=== PATIENT | female | born 1960 | race Two or more races ===

== ENCOUNTER 2022-09-10 09:57 | Inpatient (IN) | payer BC, MEDICAID ==
[~2022-09-10] VITALS: Ht 162.6 cm; Wt 88.0 kg
[2022-09-10] MEDS ORDERED: LIDOCAINE 5% PATCH TOP ONE (10:15)
[2022-09-10] MEDS ORDERED: SODIUM CHLORIDE 0.9% 500 ML IV ONE (10:15)
[2022-09-10] MEDS ORDERED: SODIUM CHLORIDE 0.9% 1,000 ML IV ONE (10:15)
[2022-09-10 10:35] LABS: HEMATOCRIT. 53.2 % (36.0-48.0); HEMOGLOBIN. 15.5 g/dL (12.0-16.0); MEAN CORPUSCULAR HEMOGLOBIN 29.6 pg (28.0-32.0); MEAN CORPUSCULAR VOLUME 101.2 fL (81.0-99.0); MEAN PLATELET VOLUME 9.9 fl (7.4-10.4); PLATELET 310 x1000/uL (130-400); RED BLOOD CELL COUNT 5.25 mill/uL (4.2-5.4); RED CELL DISTRIBUTION WIDTH 15.3 % (11.6-14.6)
[2022-09-10 10:38] LABS: BG BASE EXCESS -27.3 mmol/L (-2.0-2.0); BG CARBOXYHEMOGLOBIN 0.3 % (0.5-1.5); BG DEOXYHEMOGLOBIN 4.8 % (0.0-5.0); BG HCO3 ACT 3.9 mmol/L (22.0-26.0); BG METHEMOGLOBIN 0.4 % (0.0-1.5); BG OXYGEN SATURATION 95.2 % (92.0-98.5); BG OXYHEMOGLOBIN 94.5 % (94.0-97.0); BG PCO2 19.1 mmHg (35.0-45.0); BG PH 6.931 (7.350-7.450); BG PO2 96.6 mmHg (75.0-100.0); BG SAMPLE SITE RIGHT RADIAL; BG VENT MODE NASAL CANNULA
[2022-09-10] MEDS ORDERED: SODIUM BICARBONATE 8.4% 1 MEQ/ML 50ML SYR IV NR ×2 (11:00→17:30)
[2022-09-10] MEDS ORDERED: VANCOMYCIN 1G PREMIX 200 ML IV NR (11:00)
[2022-09-10] MEDS ORDERED: PIPERACILLIN/TAZ 3.375G PREMIX 50 ML IV NR ×2 (11:00→21:00)
[2022-09-10] MEDS ORDERED: MORPHINE SULFATE 4 MG/ML CPJ (NOT FOR IM USE) IV ONE ×2 (11:30→13:15)
[2022-09-10 11:35] LABS: INR 2.5; PROTHROMBIN TIME 25.3 sec (9.6-11.0)
[2022-09-10 12:34] LABS: CHLORIDE 92 mEq/L (98-107)
[2022-09-10 12:39] LABS: PLATELET ESTIMATE NORMAL
[2022-09-10] MEDS ORDERED: INSULIN REGULAR (DRIP) 100 UNITS in SODIUM CHLORIDE 0.9% 99 ML IV ONE (12:45)
[2022-09-10] MEDS ORDERED: INSULIN REGULAR (HUMULIN R) 300UNITS/3ML VIAL IV NR (12:45)
[2022-09-10 12:51] LABS: CREATINE KINASE 104 IU/L (26-192); ETHANOL BLOOD < 10 mg/dL
[2022-09-10] MEDS ORDERED: INSULIN REGULAR 100U/100ML PMX 100 ML IV SCH ×2 (13:00→19:00)
[2022-09-10] MEDS ORDERED: HYDROMORPHONE HCL/PF 2MG/ML CPJ IV NR (13:30)
[2022-09-10] MEDS ORDERED: PROPOFOL 10MG/ML 100ML 100 ML IV ONE (13:30)
[2022-09-10] MEDS ORDERED: ONDANSETRON HCL 4MG/2ML INJ IV NR (13:30)
[2022-09-10] MEDS ORDERED: SUCCINYLCHOLINE CHLORIDE 200MG/10ML IV ONE (13:30)
[2022-09-10] MEDS ORDERED: NOREPINEPHRINE 8 MG in DEXT 5% WATER 242 ML IV PRN (14:30)
[2022-09-10] MEDS ORDERED: NOREPINEPHRINE 8MG/250ML PMX 250 ML IV SCH (14:45)
[2022-09-10] MEDS ORDERED: NOREPINEPHRINE 8MG/250ML PMX 250 ML IV PRN (14:45)
[2022-09-10 15:00] LABS: CLARITY URINE TURBID (CLEAR); COLOR URINE DARK YELLOW (YELLOW); KETONES URINE 1+ (NEGATIVE); LEUKOCYTE ESTERASE URINE 3+ (NEGATIVE); NITRITE URINE NEGATIVE (NEGATIVE); OCCULT BLOOD URINE 2+ (NEGATIVE); PH URINE 5.5 (4.5-8.0); PROTEIN URINE 4+ (NEGATIVE); SPECIFIC GRAVITY URINE 1.025 (1.005-1.030); UROBILINOGEN URINE 0.2 E.U./dL (0.2-1.0)
[2022-09-10] MEDS ORDERED: NITROGLYCERIN OINT 1GM/INCH UDPKT TD NR (15:15)
[2022-09-10] MEDS ORDERED: FUROSEMIDE 40MG/4ML VIAL IVP NR (15:15)
[2022-09-10] MEDS ORDERED: ASPIRIN 325MG EC TABLET PO NR (15:15)
[2022-09-10] MEDS ORDERED: DEXT 5%/0.45% NACL 1000ML 1,000 ML IV SCH (15:45)
[2022-09-10] MEDS ORDERED: DEXTROSE 50% WATER 50ML SYRINGE IV PRN (15:45)
[2022-09-10] MEDS ORDERED: INSULIN REGULAR (HUMULIN R) 300UNITS/3ML VIAL IV PRN (15:45)
[2022-09-10] MEDS ORDERED: INSULIN REGULAR (DRIP) 100 UNITS in SODIUM CHLORIDE 0.9% 99 ML IV SCH (16:00)
[2022-09-10 16:15] LABS: BG BASE EXCESS -30.9 mmol/L (-2.0-2.0); BG CARBOXYHEMOGLOBIN 0.3 % (0.5-1.5); BG HCO3 ACT 3.2 mmol/L (22.0-26.0); BG METHEMOGLOBIN 0.3 % (0.0-1.5); BG OXYHEMOGLOBIN 98.4 % (94.0-97.0); BG PCO2 20.8 mmHg (35.0-45.0); BG PH 6.802 (7.350-7.450); BG PO2 240.3 mmHg (75.0-100.0); BG SAMPLE SITE RIGHT RADIAL; BG VENT MODE VENT - AC
[2022-09-10] MEDS ORDERED: ASPIRIN 81MG TABLET PO ONE (16:15)
[2022-09-10] MEDS: SODIUM BICARBONATE 100 MEQ in SODIUM CHLORIDE 0.45% 1,000 ML IV SCH (16:16)
[2022-09-10] MEDS ORDERED: PROPOFOL 10MG/ML 100ML 100 ML IV SCH (16:30)
[2022-09-10] MEDS: BLOOD SUGAR DIAGNOSTIC STRIP TEST SCH ×5 (16:39→19:45)
[2022-09-10 17:23] LABS: BETA HYDROXYBUTYRATE 7.8 mMol/L (0.0-0.3)
[2022-09-10] MEDS ORDERED: PHENYLEPHRINE 100 MG in DEXT 5% WATER 240 ML IV PRN (17:45)
[2022-09-10] MEDS ORDERED: PROPOFOL 10MG/ML 100ML 100 ML IV PRN (17:45)
[2022-09-10 17:59] LABS: PHOSPHORUS 16.3 mg/dL (2.5-4.9)
[2022-09-10] MEDS ORDERED: ACETAMINOPHEN 325MG SUPP PR PRN (18:15)
[2022-09-10 18:57] LABS: *AMPHETAMINES SCREEN URINE NEGATIVE (NEGATIVE); *BARBITURATES SCREEN URINE NEGATIVE (NEGATIVE); *BENZODIAZEPINES SCREEN URINE NEGATIVE (NEGATIVE); *COCAINE SCREEN URINE NEGATIVE (NEGATIVE); CANNABINOID URINE SCREEN NEGATIVE (NEGATIVE); METHADONE URINE SCREEN NEGATIVE (NEGATIVE); OPIATES URINE SCREEN PRESUMTIVE POSITIVE (NEGATIVE); PHENCYCLIDINE URINE SCREEN NEGATIVE (NEGATIVE)
[2022-09-10 18:58] LABS: BG BASE EXCESS -26.3 mmol/L (-2.0-2.0); BG CARBOXYHEMOGLOBIN 0.6 % (0.5-1.5); BG DEOXYHEMOGLOBIN 0.5 % (0.0-5.0); BG FRACTION INSPIRED OXYGEN 80; BG METHEMOGLOBIN 0.3 % (0.0-1.5); BG OXYGEN SATURATION 99.5 % (92.0-98.5); BG OXYHEMOGLOBIN 98.6 % (94.0-97.0); BG PH 6.934 (7.350-7.450); BG PO2 309.7 mmHg (75.0-100.0); BG SAMPLE SITE RIGHT RADIAL; BG TOTAL HEMOGLOBIN 14.2 g/dL (12.0-18.0); BG TOTAL RESPIRATORY RATE 30 b/min; BG VENT MODE VENT - AC
[2022-09-10] MEDS: FENTANYL 2500MCG/250ML PMX 250 ML IV PRN (19:01)
[2022-09-10 19:26] LABS: CREATINE KINASE MB FRACTION 5.3 ng/mL (0.5-3.6)
[2022-09-10] MEDS: SODIUM CHLORIDE 0.45% 1,000 ML IV SCH ×2 (20:30→23:00)
[2022-09-10] MEDS: LACTULOSE 20G/30ML UDC PO SCH (23:00)
[2022-09-10 23:30] VITALS: BP 100/50
[2022-09-10] MEDS ORDERED: IPRATROPIUM BROMIDE (0.02%) 0.5MG/2.5ML NEB HHN PRN (23:30)
[2022-09-11] VITALS (82 sets, daily range): BP systolic 73–193; BP diastolic 37–102
[2022-09-11] MEDS ORDERED: DEXTROSE 50% WATER 50ML SYRINGE IV PRN (00:30)
[2022-09-11 00:54] LABS: BG BASE EXCESS -22.2 mmol/L (-2.0-2.0); BG CARBOXYHEMOGLOBIN 0.1 % (0.5-1.5); BG DEOXYHEMOGLOBIN 0.7 % (0.0-5.0); BG FRACTION INSPIRED OXYGEN 80; BG HCO3 ACT 6.5 mmol/L (22.0-26.0); BG METHEMOGLOBIN 0.3 % (0.0-1.5); BG OXYGEN SATURATION 99.3 % (92.0-98.5); BG OXYHEMOGLOBIN 98.9 % (94.0-97.0); BG PCO2 23.4 mmHg (35.0-45.0); BG PH 7.063 (7.350-7.450); BG PO2 322.2 mmHg (75.0-100.0); BG SAMPLE SITE RIGHT RADIAL; BG TOTAL HEMOGLOBIN 13.8 g/dL (12.0-18.0); BG VENT MODE VENT - AC
[2022-09-11] MEDS ORDERED: PHENYLEPHRINE 100 MG in DEXT 5% WATER 240 ML IV PRN (01:30)
[2022-09-11] MEDS ORDERED: SODIUM BICARBONATE 8.4% 1 MEQ/ML 50ML SYR IV NR ×2 (01:45→10:15)
[2022-09-11] MEDS: SODIUM BICARBONATE 100 MEQ in SODIUM CHLORIDE 0.45% 1,000 ML IV SCH (01:48)
[2022-09-11] MEDS: PROPOFOL 10MG/ML 100ML 100 ML IV PRN ×2 (01:50→08:58)
[2022-09-11] MEDS: NOREPINEPHRINE 32 MG in DEXT 5% WATER 218 ML IV PRN ×3 (01:51→17:23)
[2022-09-11] MEDS: SODIUM CHLORIDE 0.45% 1,000 ML IV SCH ×4 (01:53→08:00)
[2022-09-11 02:29] LABS: PHOSPHORUS 9.8 mg/dL (2.5-4.9)
[2022-09-11 02:30] LABS: CREATINE KINASE MB FRACTION 6.6 ng/mL (0.5-3.6)
[2022-09-11] MEDS: FENTANYL 2500MCG/250ML PMX 250 ML IV PRN (05:47)
[2022-09-11 05:52] LABS: HEMATOCRIT. 42.2 % (36.0-48.0); HEMOGLOBIN. 13.5 g/dL (12.0-16.0); MEAN CORPUSCULAR HEMOGLOBIN 29.4 pg (28.0-32.0); MEAN PLATELET VOLUME 9.9 fl (7.4-10.4); PLATELET 197 x1000/uL (130-400); RED BLOOD CELL COUNT 4.58 mill/uL (4.2-5.4); RED CELL DISTRIBUTION WIDTH 14.5 % (11.6-14.6)
[2022-09-11 05:58] LABS: CHLORIDE 89 mEq/L (98-107)
[2022-09-11] MEDS ORDERED: BLOOD SUGAR DIAGNOSTIC STRIP TEST SCH (06:00)
[2022-09-11 06:11] LABS: CREATINE KINASE 309 IU/L (26-192)
[2022-09-11 06:25] LABS: INR 1.4; PROTHROMBIN TIME 14.8 sec (9.6-11.0)
[2022-09-11] MEDS: LACTULOSE 20G/30ML UDC PO SCH ×4 (06:35→21:34)
[2022-09-11] MEDS: BLOOD SUGAR DIAGNOSTIC STRIP TEST SCH ×3 (06:35→17:33)
[2022-09-11] MEDS: INSULIN LISPRO 100 UNITS/ML SUBCUT SCH ×3 (06:36→17:33)
[2022-09-11] MEDS: ENOXAPARIN 30MG/0.3ML SYR SUBCUT SCH (08:57)
[2022-09-11] MEDS: PANTOPRAZOLE SODIUM 40 MG/VIAL IV SCH (08:58)
[2022-09-11] MEDS: PIPERACILLIN/TAZOBACTAM 3.375 G in DEXTROSE 5% WATER 50 ML IV SCH ×2 (08:58→21:34)
[2022-09-11] MEDS: MIDAZOLAM HCL 100 MG in SODIUM CHLORIDE 0.9% 80 ML IV PRN (09:42)
[2022-09-11] MEDS: SODIUM BICARBONATE 150 MEQ in DEXTROSE 5% WATER 1,000 ML IV SCH ×2 (09:42→21:33)
[2022-09-11 09:53] LABS: BG CARBOXYHEMOGLOBIN 1.1 % (0.5-1.5); BG DEOXYHEMOGLOBIN 3.9 % (0.0-5.0); BG FRACTION INSPIRED OXYGEN 40; BG HCO3 ACT 5.6 mmol/L (22.0-26.0); BG METHEMOGLOBIN 0.2 % (0.0-1.5); BG OXYHEMOGLOBIN 94.8 % (94.0-97.0); BG PCO2 20.3 mmHg (35.0-45.0); BG PH 7.061 (7.350-7.450); BG PO2 94.7 mmHg (75.0-100.0); BG SAMPLE SITE RIGHT RADIAL; BG TOTAL HEMOGLOBIN 14.6 g/dL (12.0-18.0); BG VENT MODE VENT - AC
[2022-09-11] MEDS ORDERED: MAGNESIUM 2 G PREMIX 50 ML IV NR (11:00)
[2022-09-11] MEDS ORDERED: FENTANYL CITRATE 2,500 MCG in SODIUM CHLORIDE 0.9% 200 ML IV PRN (11:00)
[2022-09-11] MEDS ORDERED: PIPERACILLIN/TAZOBACTAM 3.375 G in DEXTROSE 5% WATER 50 ML IV SCH (11:00)
[2022-09-11 12:17] LABS: T4 FREE 1.39 ng/dL (0.76-1.46)
[2022-09-11 13:00] LABS: HEPATITIS B SURFACE ANTIGEN NEGATIVE
[2022-09-11] MEDS: IPRATROPIUM BROMIDE (0.02%) 0.5MG/2.5ML NEB HHN SCH ×2 (13:08→19:52)
[2022-09-11] MEDS ORDERED: LACTULOSE ENEMA 1,000ML BOTTLE PR ONE (15:15)
[2022-09-11] MEDS ORDERED: LACTULOSE 300 ML in WATER FOR IRRIGATION,STERILE 700 ML PR NR (15:30)
[2022-09-11 17:04] LABS: PLATELET ESTIMATE NORMAL
[2022-09-12] VITALS (94 sets, daily range): BP systolic 80–182; BP diastolic 41–94
[2022-09-12] MEDS: BLOOD SUGAR DIAGNOSTIC STRIP TEST SCH ×4 (00:55→17:21)
[2022-09-12] MEDS: INSULIN LISPRO 100 UNITS/ML SUBCUT SCH ×4 (01:03→17:23)
[2022-09-12] MEDS: IPRATROPIUM BROMIDE (0.02%) 0.5MG/2.5ML NEB HHN SCH ×4 (01:43→21:06)
[2022-09-12 04:57] LABS: HEMATOCRIT 37.3 % (36.0-48.0); HEMOGLOBIN 12.4 g/dL (12.0-16.0); MEAN CORPUSCULAR HEMOGLOBIN 29.4 pg (28.0-32.0); MEAN CORPUSCULAR VOLUME 88.6 fL (81.0-99.0); PLATELET 129 x1000/uL (130-400); RED BLOOD CELL COUNT 4.22 mill/uL (4.2-5.4); RED CELL DISTRIBUTION WIDTH 14.4 % (11.6-14.6)
[2022-09-12 05:00] LABS: CHLORIDE 87 mEq/L (98-107)
[2022-09-12 05:23] LABS: FERRITIN 186 ng/mL (10-291); PHOSPHORUS 6.3 mg/dL (2.5-4.9); TOTAL IRON BINDING CAPACITY 149 ug/dL (250-450)
[2022-09-12 05:40] LABS: VITAMIN B12 SERUM 448 pg/mL (211-911)
[2022-09-12] MEDS: LACTULOSE 20G/30ML UDC PO SCH ×3 (06:48→21:38)
[2022-09-12] MEDS: SODIUM BICARBONATE 150 MEQ in DEXTROSE 5% WATER 1,000 ML IV SCH ×2 (09:05→20:04)
[2022-09-12] MEDS: PIPERACILLIN/TAZOBACTAM 3.375 G in DEXTROSE 5% WATER 50 ML IV SCH (09:06)
[2022-09-12] MEDS: ENOXAPARIN 30MG/0.3ML SYR SUBCUT SCH (09:06)
[2022-09-12] MEDS: PANTOPRAZOLE SODIUM 40 MG/VIAL IV SCH (09:06)
[2022-09-12 09:34] LABS: BG BASE EXCESS -4.5 mmol/L (-2.0-2.0); BG CARBOXYHEMOGLOBIN 0.5 % (0.5-1.5); BG DEOXYHEMOGLOBIN 3.4 % (0.0-5.0); BG FRACTION INSPIRED OXYGEN 35; BG HCO3 ACT 16.4 mmol/L (22.0-26.0); BG METHEMOGLOBIN 0.1 % (0.0-1.5); BG OXYGEN SATURATION 96.6 % (92.0-98.5); BG PCO2 20.7 mmHg (35.0-45.0); BG PH 7.517 (7.350-7.450); BG PO2 82.2 mmHg (75.0-100.0); BG SAMPLE SITE RIGHT RADIAL; BG TOTAL HEMOGLOBIN 12.2 g/dL (12.0-18.0); BG VENT MODE VENT - AC
[2022-09-12] MEDS ORDERED: KCL 20MEQ/100ML PREMIX 100 ML IV NR (12:00)
[2022-09-12] MEDS ORDERED: CEFTRIAXONE 2 G PREMIX 50 ML IV SCH (12:00)
[2022-09-12 12:34] LABS: BG BASE EXCESS -4.7 mmol/L (-2.0-2.0); BG CARBOXYHEMOGLOBIN 0.5 % (0.5-1.5); BG DEOXYHEMOGLOBIN 4.3 % (0.0-5.0); BG FRACTION INSPIRED OXYGEN 35; BG HCO3 ACT 17.3 mmol/L (22.0-26.0); BG METHEMOGLOBIN 0.1 % (0.0-1.5); BG OXYGEN SATURATION 95.7 % (92.0-98.5); BG OXYHEMOGLOBIN 95.1 % (94.0-97.0); BG PCO2 24.1 mmHg (35.0-45.0); BG PH 7.475 (7.350-7.450); BG PO2 81.8 mmHg (75.0-100.0); BG SAMPLE SITE RIGHT BRACHIAL; BG TOTAL HEMOGLOBIN 11.8 g/dL (12.0-18.0); BG VENT MODE VENT - AC
[2022-09-12] MEDS ORDERED: VANCOMYCIN 1G PREMIX 200 ML IV NR (14:00)
[2022-09-12] MEDS: CEFTRIAXONE 2 G in DEXTROSE 5% WATER 50 ML IV SCH (14:23)
[2022-09-12] MEDS: NOREPINEPHRINE 32 MG in DEXT 5% WATER 218 ML IV PRN (20:04)
[2022-09-12] MEDS: MIDAZOLAM HCL 100 MG in SODIUM CHLORIDE 0.9% 80 ML IV PRN (20:07)
[2022-09-13] VITALS (101 sets, daily range): BP systolic 73–155; BP diastolic 31–107
[2022-09-13] MEDS: BLOOD SUGAR DIAGNOSTIC STRIP TEST SCH ×4 (00:26→17:04)
[2022-09-13] MEDS: INSULIN LISPRO 100 UNITS/ML SUBCUT SCH ×4 (00:27→17:03)
[2022-09-13] MEDS: IPRATROPIUM BROMIDE (0.02%) 0.5MG/2.5ML NEB HHN SCH ×4 (01:29→20:32)
[2022-09-13] MEDS: LACTULOSE 20G/30ML UDC PO SCH ×3 (05:53→22:28)
[2022-09-13] MEDS: SODIUM BICARBONATE 150 MEQ in DEXTROSE 5% WATER 1,000 ML IV SCH (06:29)
[2022-09-13] MEDS: PANTOPRAZOLE SODIUM 40 MG/VIAL IV SCH (08:12)
[2022-09-13] MEDS: ENOXAPARIN 30MG/0.3ML SYR SUBCUT SCH ×2 (08:13→09:00)
[2022-09-13 08:50] LABS: BG CARBOXYHEMOGLOBIN 0.3 % (0.5-1.5); BG DEOXYHEMOGLOBIN 8.3 % (0.0-5.0); BG FRACTION INSPIRED OXYGEN 35; BG HCO3 ACT 35.9 mmol/L (22.0-26.0); BG METHEMOGLOBIN 0.1 % (0.0-1.5); BG OXYGEN SATURATION 91.7 % (92.0-98.5); BG OXYHEMOGLOBIN 91.3 % (94.0-97.0); BG PCO2 39.4 mmHg (35.0-45.0); BG PH 7.578 (7.350-7.450); BG PO2 59.1 mmHg (75.0-100.0); BG SAMPLE SITE RIGHT RADIAL; BG TOTAL HEMOGLOBIN 11.6 g/dL (12.0-18.0); BG VENT MODE VENT - AC
[2022-09-13] MEDS ORDERED: AMIODARONE HCL 900 MG in DEXT 5% WATER 482 ML IV PRN (09:00)
[2022-09-13 11:59] LABS: HEMATOCRIT 32.3 % (36.0-48.0); MEAN CORPUSCULAR HEMOGLOBIN 29.7 pg (28.0-32.0); MEAN CORPUSCULAR VOLUME 87.2 fL (81.0-99.0); PLATELET 91 x1000/uL (130-400); RED BLOOD CELL COUNT 3.71 mill/uL (4.2-5.4); RED CELL DISTRIBUTION WIDTH 14.4 % (11.6-14.6)
[2022-09-13] MEDS: CEFTRIAXONE 2 G in DEXTROSE 5% WATER 50 ML IV SCH (13:07)
[2022-09-13 13:45] LABS: BG BASE EXCESS 14.8 mmol/L (-2.0-2.0); BG CARBOXYHEMOGLOBIN 0.3 % (0.5-1.5); BG DEOXYHEMOGLOBIN 2.9 % (0.0-5.0); BG FRACTION INSPIRED OXYGEN 40; BG METHEMOGLOBIN 0.3 % (0.0-1.5); BG OXYGEN SATURATION 97.1 % (92.0-98.5); BG OXYHEMOGLOBIN 96.5 % (94.0-97.0); BG PCO2 36.6 mmHg (35.0-45.0); BG PH 7.623 (7.350-7.450); BG PO2 97.2 mmHg (75.0-100.0); BG SAMPLE SITE RIGHT RADIAL; BG TOTAL HEMOGLOBIN 11.9 g/dL (12.0-18.0); BG VENT MODE VENT - AC
[2022-09-13] MEDS ORDERED: CALCIUM GLUCONATE 1GM PREMIX 50 ML IV ONE (13:45)
[2022-09-13] MEDS ORDERED: POTASSIUM CHLORIDE INJ 40 MEQ in DEXT 5% WATER 250 ML IV ONE (13:45)
[2022-09-13] MEDS: KCL 20MEQ/100ML X 2 FOR TOTAL KCL 40MEQ/200ML IV SCH ×2 (14:39→17:02)
[2022-09-13] MEDS: CALCIUM GLUCONATE 1GM PREMIX 50 ML IV SCH ×2 (14:39→17:02)
[2022-09-14] VITALS (94 sets, daily range): BP systolic 82–164; BP diastolic 27–85
[2022-09-14] MEDS: IPRATROPIUM BROMIDE (0.02%) 0.5MG/2.5ML NEB HHN SCH ×2 (01:51→21:00)
[2022-09-14] MEDS: INSULIN LISPRO 100 UNITS/ML SUBCUT SCH ×4 (02:31→17:23)
[2022-09-14] MEDS: MIDAZOLAM HCL 100 MG in SODIUM CHLORIDE 0.9% 80 ML IV PRN (04:57)
[2022-09-14 05:51] LABS: BASOPHILS % 0.1 % (0.0-2.0); EOSINOPHILS % 1.1 % (0.0-5.0); HEMATOCRIT. 29.7 % (36.0-48.0); HEMOGLOBIN. 10.2 g/dL (12.0-16.0); LYMPHOCYTES % 10.3 % (20.0-50.0); MEAN CORPUSCULAR HEMOGLOBIN 30.2 pg (28.0-32.0); MEAN CORPUSCULAR VOLUME 88.3 fL (81.0-99.0); MEAN PLATELET VOLUME 9.3 fl (7.4-10.4); MONOCYTES % 6.4 % (2.0-8.0); NEUTROPHILS % 82.1 % (40.0-76.0); PLATELET 61 x1000/uL (130-400); RED BLOOD CELL COUNT 3.36 mill/uL (4.2-5.4); RED CELL DISTRIBUTION WIDTH 14.3 % (11.6-14.6)
[2022-09-14] MEDS: LACTULOSE 20G/30ML UDC PO SCH ×3 (06:08→21:07)
[2022-09-14] MEDS: BLOOD SUGAR DIAGNOSTIC STRIP TEST SCH ×4 (06:08→17:22)
[2022-09-14 08:14] LABS: BG BASE EXCESS 13.6 mmol/L (-2.0-2.0); BG CARBOXYHEMOGLOBIN 0.2 % (0.5-1.5); BG DEOXYHEMOGLOBIN 3.2 % (0.0-5.0); BG HCO3 ACT 37.1 mmol/L (22.0-26.0); BG METHEMOGLOBIN 0.1 % (0.0-1.5); BG OXYGEN SATURATION 96.8 % (92.0-98.5); BG OXYHEMOGLOBIN 96.5 % (94.0-97.0); BG PCO2 42.7 mmHg (35.0-45.0); BG PH 7.557 (7.350-7.450); BG PO2 94.7 mmHg (75.0-100.0); BG SAMPLE SITE RIGHT RADIAL; BG TOTAL HEMOGLOBIN 10.4 g/dL (12.0-18.0); BG VENT MODE VENT - AC
[2022-09-14] MEDS: ENOXAPARIN 30MG/0.3ML SYR SUBCUT SCH (08:48)
[2022-09-14] MEDS: SODIUM CHLORIDE 0.9% 1,000 ML IV SCH ×2 (08:50→21:08)
[2022-09-14] MEDS: PANTOPRAZOLE SODIUM 40 MG/VIAL IV SCH (08:50)
[2022-09-14] MEDS ORDERED: KCL 20MEQ/100ML PREMIX 100 ML IV NR (10:00)
[2022-09-14] MEDS ORDERED: ACETAZOLAMIDE 500MG ER CAPSULE PO NR (12:00)
[2022-09-14] MEDS: CEFTRIAXONE 2 G in DEXTROSE 5% WATER 50 ML IV SCH (13:09)
[2022-09-14 15:23] LABS: BG BASE EXCESS 6.8 mmol/L (-2.0-2.0); BG DEOXYHEMOGLOBIN 6.7 % (0.0-5.0); BG FRACTION INSPIRED OXYGEN 40; BG HCO3 ACT 31.7 mmol/L (22.0-26.0); BG METHEMOGLOBIN 0.3 % (0.0-1.5); BG OXYGEN SATURATION 93.3 % (92.0-98.5); BG PCO2 46.6 mmHg (35.0-45.0); BG PH 7.451 (7.350-7.450); BG PO2 71.4 mmHg (75.0-100.0); BG SAMPLE SITE LEFT RADIAL; BG TOTAL HEMOGLOBIN 11.6 g/dL (12.0-18.0); BG VENT MODE VENT - CPAP
[2022-09-14] MEDS: IPRATROPIUM/ALBUTEROL 0.5-3(2.5)MG/3ML NEB HHN PRN (15:35)
[2022-09-14] MEDS: HYDRALAZINE 20MG/ML VIAL IV PRN (18:10)
[2022-09-15] VITALS (38 sets, daily range): BP systolic 95–132; BP diastolic 44–73
[2022-09-15] MEDS: INSULIN LISPRO 100 UNITS/ML SUBCUT SCH ×4 (00:32→17:44)
[2022-09-15] MEDS: BLOOD SUGAR DIAGNOSTIC STRIP TEST SCH ×4 (00:32→17:44)
[2022-09-15] MEDS: IPRATROPIUM BROMIDE (0.02%) 0.5MG/2.5ML NEB HHN SCH ×3 (02:50→14:07)
[2022-09-15 05:41] LABS: HEMATOCRIT. 30.1 % (36.0-48.0); HEMOGLOBIN. 9.8 g/dL (12.0-16.0); LYMPHOCYTES % 7.2 % (20.0-50.0); MEAN CORPUSCULAR HEMOGLOBIN 29.7 pg (28.0-32.0); MEAN PLATELET VOLUME 9.4 fl (7.4-10.4); MONOCYTES % 7.2 % (2.0-8.0); NEUTROPHILS % 83.6 % (40.0-76.0); PLATELET 66 x1000/uL (130-400); RED BLOOD CELL COUNT 3.31 mill/uL (4.2-5.4); RED CELL DISTRIBUTION WIDTH 14.4 % (11.6-14.6)
[2022-09-15] MEDS: LACTULOSE 20G/30ML UDC PO SCH ×3 (06:02→23:01)
[2022-09-15] MEDS: PANTOPRAZOLE SODIUM 40 MG/VIAL IV SCH (08:42)
[2022-09-15] MEDS ORDERED: NALOXONE HCL 0.4MG/ML VIAL IV PRN (09:00)
[2022-09-15] MEDS ORDERED: MORPHINE SULFATE 2 MG/ML CPJ (NOT FOR IM USE) IV PRN (09:45)
[2022-09-15] MEDS: SODIUM CHLORIDE 0.9% 1,000 ML IV SCH (10:15)
[2022-09-15 10:20] LABS: D-DIMER 4.77 mg/L FEU (<0.50); PROTHROMBIN TIME 10.3 sec (9.6-11.0)
[2022-09-15] MEDS: HYDROCODONE/ACETAMINOPHEN 5/325MG TABLET PO PRN ×2 (12:14→17:46)
[2022-09-15] MEDS: CEFTRIAXONE 2 G in DEXTROSE 5% WATER 50 ML IV SCH (14:13)
[2022-09-16] VITALS (28 sets, daily range): BP systolic 108–141; BP diastolic 59–78
[2022-09-16] MEDS: SODIUM CHLORIDE 0.9% 1,000 ML IV SCH ×2 (00:45→19:30)
[2022-09-16] MEDS: BLOOD SUGAR DIAGNOSTIC STRIP TEST SCH ×4 (01:27→17:51)
[2022-09-16] MEDS: INSULIN LISPRO 100 UNITS/ML SUBCUT SCH ×4 (01:38→17:48)
[2022-09-16] MEDS: HYDROCODONE/ACETAMINOPHEN 5/325MG TABLET PO PRN ×2 (01:39→08:42)
[2022-09-16] MEDS: LACTULOSE 20G/30ML UDC PO SCH ×3 (06:00→21:55)
[2022-09-16] MEDS: IPRATROPIUM BROMIDE (0.02%) 0.5MG/2.5ML NEB HHN SCH ×3 (08:18→20:16)
[2022-09-16] MEDS: PANTOPRAZOLE SODIUM 40 MG/VIAL IV SCH (08:43)
[2022-09-16 10:10] LABS: BASOPHILS % 0.2 % (0.0-2.0); EOSINOPHILS % 6.9 % (0.0-5.0); HEMATOCRIT. 30.1 % (36.0-48.0); LYMPHOCYTES % 7.5 % (20.0-50.0); MEAN CORPUSCULAR HEMOGLOBIN 30.3 pg (28.0-32.0); MEAN CORPUSCULAR VOLUME 90.9 fL (81.0-99.0); MEAN PLATELET VOLUME 9.6 fl (7.4-10.4); MONOCYTES % 6.4 % (2.0-8.0); PLATELET 105 x1000/uL (130-400); RED BLOOD CELL COUNT 3.31 mill/uL (4.2-5.4); RED CELL DISTRIBUTION WIDTH 14.2 % (11.6-14.6)
[2022-09-16] MEDS: IPRATROPIUM/ALBUTEROL 0.5-3(2.5)MG/3ML NEB HHN PRN (13:34)
[2022-09-16] MEDS ORDERED: CEFTRIAXONE 2 G in DEXTROSE 5% WATER 50 ML IV SCH (17:00)
[2022-09-16] MEDS: ACETAMINOPHEN WITH CODEINE 300/60MG TABLET PO PRN (17:51)
[2022-09-16 20:32] LABS: CHLORIDE 106 mEq/L (98-107)
[2022-09-17] VITALS (19 sets, daily range): BP systolic 119–138; BP diastolic 57–88
[2022-09-17] MEDS: BLOOD SUGAR DIAGNOSTIC STRIP TEST SCH ×5 (00:20→23:56)
[2022-09-17] MEDS: ACETAMINOPHEN WITH CODEINE 300/60MG TABLET PO PRN ×4 (00:36→21:23)
[2022-09-17] MEDS: IPRATROPIUM BROMIDE (0.02%) 0.5MG/2.5ML NEB HHN SCH ×4 (02:22→21:37)
[2022-09-17] MEDS: SODIUM CHLORIDE 0.9% 1,000 ML IV SCH ×2 (03:25→12:56)
[2022-09-17] MEDS: LACTULOSE 20G/30ML UDC PO SCH (06:53)
[2022-09-17] MEDS: INSULIN LISPRO 100 UNITS/ML SUBCUT SCH ×4 (06:59→17:50)
[2022-09-17] MEDS: ENOXAPARIN 30MG/0.3ML SYR SUBCUT SCH (09:00)
[2022-09-17] MEDS: PANTOPRAZOLE SODIUM 40 MG/VIAL IV SCH (09:19)
[2022-09-17] MEDS: IPRATROPIUM/ALBUTEROL 0.5-3(2.5)MG/3ML NEB HHN PRN (09:46)
[2022-09-17 11:32] LABS: BASOPHILS % 0.3 % (0.0-2.0); EOSINOPHILS % 7.6 % (0.0-5.0); HEMOGLOBIN. 9.9 g/dL (12.0-16.0); LYMPHOCYTES % 15.4 % (20.0-50.0); MEAN CORPUSCULAR HEMOGLOBIN 29.8 pg (28.0-32.0); MEAN PLATELET VOLUME 9.1 fl (7.4-10.4); NEUTROPHILS % 66.7 % (40.0-76.0); PLATELET 148 x1000/uL (130-400); RED BLOOD CELL COUNT 3.33 mill/uL (4.2-5.4); RED CELL DISTRIBUTION WIDTH 13.7 % (11.6-14.6)
[2022-09-17] MEDS ORDERED: GABAPENTIN 300MG CAPSULE PO SCH (13:00)
[2022-09-17 14:53] LABS: CHLORIDE 99 mEq/L (98-107)
[2022-09-17] MEDS ORDERED: LOPERAMIDE HCL 2MG CAPSULE PO PRN (17:00)
[2022-09-17] MEDS ORDERED: DIPHENOXYLATE/ATROPINE 2.5/0.025MG TABLET PO NR (17:00)
[2022-09-18] VITALS (7 sets, daily range): BP systolic 120–143; BP diastolic 51–80
[2022-09-18] MEDS: INSULIN LISPRO 100 UNITS/ML SUBCUT SCH ×4 (00:02→18:02)
[2022-09-18] MEDS: IPRATROPIUM BROMIDE (0.02%) 0.5MG/2.5ML NEB HHN SCH ×4 (01:07→20:05)
[2022-09-18] MEDS: ACETAMINOPHEN WITH CODEINE 300/60MG TABLET PO PRN ×2 (03:45→10:26)
[2022-09-18] MEDS: BLOOD SUGAR DIAGNOSTIC STRIP TEST SCH ×3 (06:23→18:02)
[2022-09-18] MEDS: SODIUM CHLORIDE 0.9% 1,000 ML IV SCH ×2 (06:23→20:30)
[2022-09-18 06:34] LABS: BASOPHILS % 0.3 % (0.0-2.0); EOSINOPHILS % 7.8 % (0.0-5.0); HEMATOCRIT. 27.9 % (36.0-48.0); HEMOGLOBIN. 9.2 g/dL (12.0-16.0); LYMPHOCYTES % 14.7 % (20.0-50.0); MEAN CORPUSCULAR HEMOGLOBIN 29.6 pg (28.0-32.0); MEAN CORPUSCULAR VOLUME 89.8 fL (81.0-99.0); MEAN PLATELET VOLUME 8.6 fl (7.4-10.4); MONOCYTES % 13.3 % (2.0-8.0); NEUTROPHILS % 63.9 % (40.0-76.0); PLATELET 172 x1000/uL (130-400); RED BLOOD CELL COUNT 3.11 mill/uL (4.2-5.4)
[2022-09-18] MEDS: ENOXAPARIN 30MG/0.3ML SYR SUBCUT SCH (08:57)
[2022-09-18] MEDS: PANTOPRAZOLE SODIUM 40 MG/VIAL IV SCH (08:57)
[2022-09-18] MEDS: GABAPENTIN 300MG CAPSULE PO SCH (20:30)
[2022-09-19] VITALS: BP 119/70
[2022-09-19] MEDS: BLOOD SUGAR DIAGNOSTIC STRIP TEST SCH ×4 (00:42→17:02)
[2022-09-19] MEDS: IPRATROPIUM BROMIDE (0.02%) 0.5MG/2.5ML NEB HHN SCH ×4 (01:03→20:25)
[2022-09-19 04:00] VITALS: BP 133/72
[2022-09-19] MEDS: INSULIN LISPRO 100 UNITS/ML SUBCUT SCH ×5 (07:48→22:04)
[2022-09-19 07:56] LABS: HEMATOCRIT. 26.4 % (36.0-48.0); HEMOGLOBIN. 8.8 g/dL (12.0-16.0); MEAN CORPUSCULAR HEMOGLOBIN 30.3 pg (28.0-32.0); MEAN CORPUSCULAR VOLUME 90.9 fL (81.0-99.0); MEAN PLATELET VOLUME 8.2 fl (7.4-10.4); PLATELET 195 x1000/uL (130-400); RED CELL DISTRIBUTION WIDTH 14.1 % (11.6-14.6)
[2022-09-19 08:00] VITALS: BP 118/55
[2022-09-19] MEDS: GUAIFENESIN 600MG ER TABLET PO SCH ×2 (08:54→21:59)
[2022-09-19] MEDS: PANTOPRAZOLE SODIUM 40 MG/VIAL IV SCH (08:55)
[2022-09-19] MEDS: SODIUM CHLORIDE 0.9% 1,000 ML IV SCH ×2 (08:55→22:12)
[2022-09-19] MEDS: ENOXAPARIN 30MG/0.3ML SYR SUBCUT SCH (08:55)
[2022-09-19 10:36] LABS: PLATELET ESTIMATE NORMAL
[2022-09-19 12:00] VITALS: BP 129/63
[2022-09-19 16:00] VITALS: BP 141/57
[2022-09-19] MEDS: ACETAMINOPHEN WITH CODEINE 300/60MG TABLET PO PRN (17:24)
[2022-09-19 20:00] VITALS: BP 124/63
[2022-09-19] MEDS: GABAPENTIN 300MG CAPSULE PO SCH (21:59)
[2022-09-20] VITALS: BP 148/80
[2022-09-20] MEDS: IPRATROPIUM BROMIDE (0.02%) 0.5MG/2.5ML NEB HHN SCH ×4 (00:47→20:07)
[2022-09-20] MEDS: ACETAMINOPHEN WITH CODEINE 300/60MG TABLET PO PRN ×4 (01:34→22:32)
[2022-09-20 03:27] VITALS: BP 138/71
[2022-09-20] MEDS: BLOOD SUGAR DIAGNOSTIC STRIP TEST SCH ×5 (05:43→23:58)
[2022-09-20] MEDS: INSULIN LISPRO 100 UNITS/ML SUBCUT SCH ×3 (06:23→18:20)
[2022-09-20 08:00] VITALS: BP 157/71
[2022-09-20] MEDS: ENOXAPARIN 30MG/0.3ML SYR SUBCUT SCH (08:32)
[2022-09-20] MEDS: GUAIFENESIN 600MG ER TABLET PO SCH ×2 (08:32→22:31)
[2022-09-20] MEDS: PANTOPRAZOLE SODIUM 40 MG/VIAL IV SCH (08:33)
[2022-09-20 12:00] VITALS: BP 142/71
[2022-09-20] MEDS: SODIUM CHLORIDE 0.9% 1,000 ML IV SCH ×2 (12:14→23:58)
[2022-09-20 16:00] VITALS: BP 145/69
[2022-09-20 20:00] VITALS: BP 157/64
[2022-09-20] MEDS: GABAPENTIN 300MG CAPSULE PO SCH (22:31)
[2022-09-21] VITALS: BP 131/89
[2022-09-21] MEDS: IPRATROPIUM/ALBUTEROL 0.5-3(2.5)MG/3ML NEB HHN PRN (02:15)
[2022-09-21] MEDS: IPRATROPIUM BROMIDE (0.02%) 0.5MG/2.5ML NEB HHN SCH ×4 (02:16→20:33)
[2022-09-21 04:00] VITALS: BP 137/75
[2022-09-21] MEDS: ACETAMINOPHEN WITH CODEINE 300/60MG TABLET PO PRN ×3 (04:39→18:10)
[2022-09-21 06:15] LABS: BASOPHILS % 0.6 % (0.0-2.0); HEMATOCRIT. 24.7 % (36.0-48.0); HEMOGLOBIN. 8.3 g/dL (12.0-16.0); LYMPHOCYTES % 16.5 % (20.0-50.0); MEAN CORPUSCULAR HEMOGLOBIN 30.1 pg (28.0-32.0); MEAN CORPUSCULAR VOLUME 90.1 fL (81.0-99.0); MEAN PLATELET VOLUME 8.1 fl (7.4-10.4); MONOCYTES % 7.1 % (2.0-8.0); NEUTROPHILS % 72.8 % (40.0-76.0); PLATELET 233 x1000/uL (130-400); RED BLOOD CELL COUNT 2.74 mill/uL (4.2-5.4); RED CELL DISTRIBUTION WIDTH 13.8 % (11.6-14.6)
[2022-09-21] MEDS: BLOOD SUGAR DIAGNOSTIC STRIP TEST SCH ×4 (06:16→23:20)
[2022-09-21] MEDS: INSULIN LISPRO 100 UNITS/ML SUBCUT SCH ×5 (06:35→23:17)
[2022-09-21 08:00] VITALS: BP 151/71
[2022-09-21] MEDS: PANTOPRAZOLE SODIUM 40 MG/VIAL IV SCH (08:45)
[2022-09-21] MEDS: GUAIFENESIN 600MG ER TABLET PO SCH ×2 (08:45→20:45)
[2022-09-21] MEDS: ENOXAPARIN 30MG/0.3ML SYR SUBCUT SCH (08:45)
[2022-09-21 12:00] VITALS: BP 153/68
[2022-09-21] MEDS: SODIUM CHLORIDE 0.9% 1,000 ML IV SCH (15:06)
[2022-09-21] MEDS ORDERED: GLIP10TA10 PO (15:42)
[2022-09-21] MEDS ORDERED: ATOR40TA70 PO (15:43)
[2022-09-21] MEDS ORDERED: METO25TA6 PO (15:43)
[2022-09-21] MEDS ORDERED: LISI2.5T47 PO (15:43)
[2022-09-21] MEDS ORDERED: METF-416 PO (15:43)
[2022-09-21] MEDS ORDERED: GABA800T97 PO (15:45)
[2022-09-21] MEDS ORDERED: IMOD PO (15:46)
[2022-09-21] MEDS ORDERED: GABA-532 PO (15:46)
[2022-09-21 16:00] VITALS: BP 148/72
[2022-09-21 20:00] VITALS: BP 157/85
[2022-09-21] MEDS: GABAPENTIN 300MG CAPSULE PO SCH (20:45)
[2022-09-21] MEDS ORDERED: NALOXONE HCL 0.4MG/ML VIAL IV PRN (21:15)
[2022-09-22] VITALS: BP 126/64
[2022-09-22] MEDS: ACETAMINOPHEN WITH CODEINE 300/60MG TABLET PO PRN ×3 (00:16→13:33)
[2022-09-22] MEDS: IPRATROPIUM BROMIDE (0.02%) 0.5MG/2.5ML NEB HHN SCH ×2 (01:26→09:56)
[2022-09-22] MEDS: SODIUM CHLORIDE 0.9% 1,000 ML IV SCH (03:43)
[2022-09-22 04:00] VITALS: BP 157/78
[2022-09-22] MEDS: INSULIN LISPRO 100 UNITS/ML SUBCUT SCH ×2 (05:38→12:00)
[2022-09-22] MEDS: BLOOD SUGAR DIAGNOSTIC STRIP TEST SCH ×2 (05:50→12:00)
[2022-09-22 08:00] VITALS: BP 168/81
[2022-09-22] MEDS: GUAIFENESIN 600MG ER TABLET PO SCH (10:36)
[2022-09-22] MEDS: PANTOPRAZOLE SODIUM 40 MG/VIAL IV SCH (10:36)
[2022-09-22] MEDS: ENOXAPARIN 30MG/0.3ML SYR SUBCUT SCH (10:37)
[2022-09-22] MEDS: HYDRALAZINE 20MG/ML VIAL IV PRN (11:18)
[2022-09-22 11:25] LABS: BASOPHILS % 0.7 % (0.0-2.0); EOSINOPHILS % 2.7 % (0.0-5.0); HEMATOCRIT. 26.1 % (36.0-48.0); HEMOGLOBIN. 8.7 g/dL (12.0-16.0); LYMPHOCYTES % 13.6 % (20.0-50.0); MEAN CORPUSCULAR HEMOGLOBIN 30.2 pg (28.0-32.0); MEAN CORPUSCULAR VOLUME 90.9 fL (81.0-99.0); MEAN PLATELET VOLUME 7.9 fl (7.4-10.4); MONOCYTES % 4.6 % (2.0-8.0); NEUTROPHILS % 78.4 % (40.0-76.0); PLATELET 273 x1000/uL (130-400); RED BLOOD CELL COUNT 2.88 mill/uL (4.2-5.4); RED CELL DISTRIBUTION WIDTH 14.2 % (11.6-14.6)
[2022-09-22 12:00] VITALS: BP 164/79
[2022-09-22 12:56] VITALS: BP 147/65
[2022-09-22] MEDS ORDERED: METOPROLOL TARTRATE 25MG TABLET PO SCH (14:00)
== END 2022-09-22 15:11 | disposition home health service (06) | DRG 720 ==
LOC: ER 09:57 → MICUSO 14:26 → EDBEDREQSVC 14:46 → EDBEDREQ 14:46 → SUPCPDRO 17:08 → ENRESERV 17:22 → CANRESERV 17:22 → ENRESERV 21:04 → MICUNO 09-14 19:29 → 5EST 09-15 19:10 → 8WST 09-18 01:21
PROVIDERS: ADMIT Internal Medicine; ATTEND Internal Medicine
PROC: 5A1955Z Respiratory Ventilation, Greater than 96 Consecutive Hours (ICD-10-PCS; principal; 2022-09-10)
PROC: 0BH17EZ Insertion of Endotracheal Airway into Trachea, Via Natural or Artificial Opening (ICD-10-PCS; 2022-09-10)
PROC: 06HY33Z Insertion of Infusion Device into Lower Vein, Percutaneous Approach (ICD-10-PCS; 2022-09-10)
PROC: B54BZZA Ultrasonography of Right Lower Extremity Veins, Guidance (ICD-10-PCS; 2022-09-10)
PROC: 02H633Z Insertion of Infusion Device into Right Atrium, Percutaneous Approach (ICD-10-PCS; 2022-09-11)
PROC: B548ZZA Ultrasonography of Superior Vena Cava, Guidance (ICD-10-PCS; 2022-09-11)
PROC: 5A1D70Z Performance of Urinary Filtration, Intermittent, Less than 6 Hours Per Day (ICD-10-PCS; 2022-09-11)
PROC: 02HV33Z Insertion of Infusion Device into Superior Vena Cava, Percutaneous Approach (ICD-10-PCS; 2022-09-13)
PROC: B548ZZA Ultrasonography of Superior Vena Cava, Guidance (ICD-10-PCS; 2022-09-13)
PROC: 5A1D70Z Performance of Urinary Filtration, Intermittent, Less than 6 Hours Per Day (ICD-10-PCS; 2022-09-14)
PROC: 5A1D70Z Performance of Urinary Filtration, Intermittent, Less than 6 Hours Per Day (ICD-10-PCS; 2022-09-16)
DX: A41.51 Sepsis due to Escherichia coli [E. coli] (principal); J96.01 Acute respiratory failure with hypoxia; G62.81 Critical illness polyneuropathy; R65.21 Severe sepsis with septic shock; I21.4 Non-ST elevation (NSTEMI) myocardial infarction; R57.9 Shock, unspecified; G93.41 Metabolic encephalopathy; E44.0 Moderate protein-calorie malnutrition; E11.10 Type 2 diabetes mellitus with ketoacidosis without coma; N17.9 Acute kidney failure, unspecified; D68.9 Coagulation defect, unspecified; E86.0 Dehydration; Z20.822 Contact with and (suspected) exposure to COVID-19; F17.200 Nicotine dependence, unspecified, uncomplicated; K31.89 Other diseases of stomach and duodenum; K76.0 Fatty (change of) liver, not elsewhere classified; D63.8 Anemia in other chronic diseases classified elsewhere; I13.0 Hypertensive heart and chronic kidney disease with heart failure and stage 1 through stage 4 chronic kidney disease, or unspecified chronic kidney disease; N18.9 Chronic kidney disease, unspecified; E11.22 Type 2 diabetes mellitus with diabetic chronic kidney disease; E72.4 Disorders of ornithine metabolism; R74.01 Elevation of levels of liver transaminase levels; G89.4 Chronic pain syndrome; I47.1 Supraventricular tachycardia; I50.31 Acute diastolic (congestive) heart failure; E87.5 Hyperkalemia; M47.26 Other spondylosis with radiculopathy, lumbar region; M48.061 Spinal stenosis, lumbar region without neurogenic claudication; M51.16 Intervertebral disc disorders with radiculopathy, lumbar region; R13.10 Dysphagia, unspecified; R26.9 Unspecified abnormalities of gait and mobility; N30.90 Cystitis, unspecified without hematuria; K29.70 Gastritis, unspecified, without bleeding; Z88.2 Allergy status to sulfonamides; Z90.49 Acquired absence of other specified parts of digestive tract; Z88.1 Allergy status to other antibiotic agents; Z82.49 Family history of ischemic heart disease and other diseases of the circulatory system; Z83.3 Family history of diabetes mellitus; Z79.891 Long term (current) use of opiate analgesic; Z68.33 Body mass index [BMI] 33.0-33.9, adult
CPT/HCPCS: 31500; 36415; 36556; 36573; 36600; 71045; 74176; 76937; 80048; 80053; 80061; 80076; 80202; 80305; 80307; 80320; 81003; 82010; 82140; 82270; 82375; 82550; 82553; 82607; 82728; 82746; 82805; 82962; 83036; 83540; 83550; 83605; 83735; 83880; 83930; 84100; 84145; 84439; 84443; 84478; 84484; 85025; 85027; 85044; 85379; 85384; 86705; 86709; 86803; 86850; 86900; 87070; 87077; 87186; 87340; 87426; 87804; 90935; 92523; 92610; 93005; 93306; 93923; 93970; 94003; 94640; 97116; 97162; 97166; 97530; 97535; 99291; A6261; C1725; C1752; C9113; J0360; J0610; J0696; J1170; J1650; J1815; J1940; J2250; J2270; J2370; J2543; J2704; J3010; J3370; J3475; J3480; J3490; J7030; J7040; J7050; J7060; J7070; G0480